=== PATIENT | male | born 1995 | race Caucasian/White ===

== ENCOUNTER 2018-11-27 15:31 | Emergency (ER) | payer OTHER ==
[~2018-11-27] VITALS: Ht 175.3 cm; Wt 97.5 kg
[2018-11-27 15:53] VITALS: BP_SYST 127
[2018-11-27] MEDS ORDERED: NACL 0.9% 1,000 ML IV ONE (16:15)
[2018-11-27 16:31] LABS: BASOPHILS % (AUTO) 0.2 % (0.0-2.0); EOSINOPHILS % (AUTO) 0.4 % (0.0-4.0); LYMPHOCYTES # (AUTO) 1.3 K/uL (1.0-5.5); LYMPHOCYTES % (AUTO) 17.1 % (20.5-51.5); MEAN CORPUSCULAR HEMOGLOBIN 28 pg (27-31); MEAN CORPUSCULAR HGB CONC 33 % (32-36); MEAN CORPUSCULAR VOLUME 85 fL (79.0-98.0); MONOCYTES # (AUTO) 0.6 K/uL (0.0-1.0); MONOCYTES % (AUTO) 7.8 % (1.7-9.3); NEUTROPHILS # (AUTO) 5.8 K/uL (1.8-7.7); NEUTROPHILS % (AUTO) 74.5 % (40.0-70.0); PLATELET COUNT (AUTO) 292 K/uL (130-430); RED BLOOD CELL COUNT(AUTO) 5.29 MIL/uL (4.2-6.2); WHITE BLOOD COUNT (AUTO) 7.7 K/uL (4.8-10.8)
[2018-11-27 16:39] LABS: CALCIUM 9.2 mg/dL (8.4-11.0); CREATININE 0.87 mg/dL (0.55-1.30); POTASSIUM 3.2 mmol/L (3.5-5.1)
[2018-11-27 16:45] LABS: TOTAL BILIRUBIN 0.5 mg/dL (0.0-1.0)
[2018-11-27 17:55] VITALS: BP_SYST 122
== END 2018-11-27 17:54 | disposition home or self-care (01) ==
LOC: SED 15:31
DX: F15.10 Other stimulant abuse, uncomplicated (principal); R03.0 Elevated blood-pressure reading, without diagnosis of hypertension
CPT/HCPCS: 36415; 80053; 85025; 93005; 96360; 99284; J7030